=== PATIENT | female | born 1995 | race Caucasian/White ===

== ENCOUNTER → 2018-06-16 | Outpatient (CLI) | payer OTHER ==
[2018-06-16 17:22] LABS: T4, Free (Free Thyroxine) 0.9 ng/dL (0.78-2.19)
== END ==
LOC: LABWHC1 15:53
PROVIDERS: ATTEND Obstetrics & Gynecology
DX: N92.6 Irregular menstruation, unspecified (principal)
CPT/HCPCS: 36415; 84439; 84443

== ENCOUNTER → 2018-06-16 | Outpatient (CLI) | payer OTHER ==
--- NOTE | 2018-06-16 23:03 | US ---
EXAMINATION TYPE: US pelvic complete DATE OF EXAM: 06/16/2018 COMPARISON: NONE CLINICAL HISTORY: 23-year-old female N92.6 irregular menses. Generalized pelvic pain TECHNIQUE: Transabdominal sonographic images of the pelvis were acquired. Date of LMP: today FINDINGS: EXAM MEASUREMENTS: Uterus: 6.8 x 3.0 x 4.2 cm Endometrial Stripe: 0.5 cm Right Ovary: 3.3 x 2.1 x 2.8 cm Left Ovary: 3.3 x 1.6 x 2.8 cm 1. Uterus: Anteverted wnl 2. Endometrium: wnl 3. Right Ovary: wnl with follicular change. 4. Left Ovary: wnl with follicular change. 5. Bilateral Adnexa: wnl 6. Posterior cul-de-sac: no free fluid seen IMPRESSION: Unremarkable transabdominal sonographic examination of the pelvis.
== END | disposition home or self-care (01) ==
LOC: RADUSWWP 15:32
PROVIDERS: ATTEND Obstetrics & Gynecology
DX: N92.6 Irregular menstruation, unspecified (principal)
CPT/HCPCS: 76856

== ENCOUNTER → 2022-03-20 | Outpatient (CLI) | payer OTHER ==
--- NOTE | 2022-03-20 16:04 | US ---
EXAMINATION TYPE: US OB Call Back DATE OF EXAM: 03/20/2022 COMPARISON: NONE CLINICAL HISTORY: Z36 CONFIRM DATES. Callback GESTATIONAL AGE / DATING Dates by Initial Survey Scan: (20 weeks/5 days) EDC: 08/02/22 HEART RATE: 136 bpm RHYTHM: Normal ANATOMY SEEN (second anatomic survey look): Four Chamber Heart: Outflow tracts:? LVOT/RVOT Kidneys (bilateral): IMPRESSION: 1. Supplemental anatomy exam appears normal 2. Cardiac activity documented at 136 bpm during this study.
== END | disposition home or self-care (01) ==
LOC: RADUSWWP 15:06
PROVIDERS: ATTEND Obstetrics & Gynecology
DX: Z53.9 Procedure and treatment not carried out, unspecified reason (principal)

== ENCOUNTER → 2022-06-29 | Outpatient (CLI) | payer OTHER ==
--- NOTE | 2022-06-29 10:20 | US ---
EXAMINATION TYPE: US OB >= 14 wk fetus DATE OF EXAM: 06/29/2022 COMPARISON: US dated 03/09/2022 CLINICAL HISTORY: O36.63X0 LARGE FOR DATES TECHNIQUE: Transabdominal (TA) GESTATIONAL AGE / DATING Physician Established: (35 weeks/1 days) EDC: 08/02/2022 Dates by LMP: (35 weeks/ days) EDC: 08/02/2022 Dates by First Scan: (34 weeks/6 days) EDC: 08/05/2022 Dates by Current Scan: (35 weeks/6 days) EDC: 07/28/2022 SURVEY IUP: Single PLACENTA: Posterior PREVIA: No Previa ALLYN: 13.2 cm Normal CERVICAL LENGTH (transabdominal: norm > 3.0cm): 4.4 cm BIOMETRY PRESENTATION: Vertex BPD: 9.2 cm 37 weeks / 3 days HC: 31.9 cm 36 weeks / 0 days AC: 32.4 cm 36 weeks / 2 days FL: 6.9 cm 35 weeks / 6 days ESTIMATED WEIGHT IN GRAMS: 2901 grams ESTIMATED WEIGHT IN LBS/OZ: 6 lbs. 6 oz. WEIGHT PERCENTAGE BASED ON ESTABLISHED DATES: 79% HC/AC: 0.99 Normal FL/AC: 21.5 Normal HEART RATE: 142 bpm RHYTHM: Normal Growth according to dates. IMPRESSION: Single live intrauterine gestation. biometry measurements minimally increased for expected due date as described above.
== END | disposition home or self-care (01) ==
LOC: RADUSWWP 09:38
PROVIDERS: ATTEND Obstetrics & Gynecology
DX: O36.63X0 Maternal care for excessive fetal growth, third trimester, not applicable or unspecified (principal); Z3A.35 35 weeks gestation of pregnancy
CPT/HCPCS: 76805

== ENCOUNTER 2022-07-15 10:19 | Outpatient (CLI) | payer OTHER ==
[2022-07-15 11:25] VITALS: BP 119/73; PULSE 105; RESP 16; TEMP 97.8
--- NOTE | 2022-07-18 09:39 | P.MSEPDOC ---
Presenting Problems - Arrival Data Date of Arrival on Unit: 07/15/22 Time of Arrival on Unit: 10:19 Mode of Transport: Ambulatory - Complaint OB-Reason for Admission/Chief Complaint: Possible Onset of Labor, Acute Nausea/Vomiting, Headache Comment: + covid Medical History - Information : 2 Para: 1 Term: 0 : 0 Abortions: Spontaneous or Elective: 0 Number of Living Children: 1 - Gestational Age Gestational Age by RENÉ (wks/days): 37 Weeks and 3 Days - History Complications: GBS+ Review of Systems - Review of Systems Constitutional: No problems Breast: No problems ENT: Cough Cardiovascular: No problems Respiratory: No problems Gastrointestinal: No problems Genitourinary: No problems Musculoskeletal: No problems Neurological: No problems Skin: No problems Vital Signs - Temperature Temperature: 97.8 F Temperature Source: Temporal Artery Scan - Pulse Right Sitting Pulse Rate: 105 Pulse Assessment Method: Automatic Cuff - Respirations Respiratory Rate: 16 Oxygen Delivery Method: Room Air O2 Sat by Pulse Oximetry: 97 - Blood Pressure Right Arm Blood Pressure: 119/73 Blood Pressure Mean: 88 Blood Pressure Source: Automatic Cuff Medical Screen Scoring - Cervical Exam Dilation (cm): 2 Effacement (%): 50 Station: -2 Membranes: Intact - Assessment - Baby A Baseline FHR: 145 Heart Rate - NICHD Category: Category I (Normal) NST: Reactive Physician Notification - Physician Notified Physician Notified Date: 07/15/22 Physician Notified Time: 11:08 Physician: Mariana Vasquez Order Received: Yes (d/c home) Maternal Triage Index - Non-Urgent/Priority 4 Non-Urgent Priority 4: Yes Criteria Met for Priority 4: reactive nst, nno contracctions on monitor, palpated or felt by pt, vag exam 2cm/50%/-2, covid + Disposition - Disposition OB Disposition: Discharge to home Discharge Date: 07/15/22 Discharge Time: 11:19 I agree with the RN Medical Screening Exam: Yes Case reviewed; plan agreed upon as documented in EMR&OBIX.: Yes Diagnosis: COVID-19 Additional Diagnoses: False labor
== END 2022-07-15 11:19 | disposition home or self-care (01) ==
LOC: FBPOP 10:19
PROVIDERS: ATTEND Obstetrics & Gynecology
DX: O47.1 False labor at or after 37 completed weeks of gestation (principal); Z3A.37 37 weeks gestation of pregnancy; U07.1 COVID-19
CPT/HCPCS: 59025; 99213

== ENCOUNTER 2022-07-15 20:25 | Outpatient (CLI) | payer OTHER ==
[2022-07-15 21:18] VITALS: BP 118/66; PULSE 104; RESP 18; TEMP 98.1
--- NOTE | 2022-07-16 06:24 | P.MSEPDOC ---
Presenting Problems - Arrival Data Date of Arrival on Unit: 07/15/22 Time of Arrival on Unit: 20:25 Mode of Transport: Ambulatory - Complaint OB-Reason for Admission/Chief Complaint: Rule Out SROM Comment: Pt presents to unit with c/o gush of fluid around 1400 this afternoon while vomiting Medical History - Information : 2 Para: 1 Term: 1 : 0 Abortions: Spontaneous or Elective: 0 Number of Living Children: 1 - Gestational Age Gestational Age by RENÉ (wks/days): 37 Weeks and 3 Days Review of Systems - Review of Systems Constitutional: No problems Breast: No problems ENT: No problems Cardiovascular: No problems Respiratory: No problems Gastrointestinal: No problems Genitourinary: No problems Musculoskeletal: No problems Neurological: No problems Skin: No problems Vital Signs - Temperature Temperature: 98.1 F Temperature Source: Temporal Artery Scan - Pulse Pulse Oximetery Pulse Rate: 104 Pulse Assessment Method: Pulse Oximetry - Respirations Respiratory Rate: 18 Oxygen Delivery Method: Room Air O2 Sat by Pulse Oximetry: 100 - Blood Pressure Right Arm Blood Pressure: 118/66 Blood Pressure Mean: 83 Blood Pressure Source: Automatic Cuff Medical Screen Scoring - Cervical Exam Dilation (cm): 2 Effacement (%): 50 Station: -2 Membranes: Intact - Uterine Contractions Resting: Soft to palpation - Assessment - Baby A Baseline FHR: 150 Heart Rate - NICHD Category: Category I (Normal) NST: Reactive Physician Notification - Physician Notified Physician Notified Date: 07/15/22 Physician Notified Time: 20:55 Physician: Kishan Beach - Notification Comment Comment: RN spoke with Dr. Beach regarding triage pt c/o gush of fluid around 1400 this afternoon. Reported on maternal vital signs, reactive NST, category 1 FHT, contx pattern, cervical exam of 2/50/-2 and negative amnisure. Per Dr. Yong RN to discharge pt home. Maternal Triage Index - Maternal Triage Index Presenting for scheduled procedure w/no complaint: No - Stat/Priority 1 Stat Priority 1: No - Urgent/Priority 2 Urgent Priority 2: No - Prompt/Priority 3 Prompt Priority 3: No - Non-Urgent/Priority 4 Non-Urgent Priority 4: Yes Criteria Met for Priority 4: Pt presents to unit with c/o gush of fluid around 1400 this afternoon while vomiting Disposition - Disposition OB Disposition: Discharge to home, Written follow up instructions reviewed Discharge Date: 07/15/22 Discharge Time: 20:58 I agree with the RN Medical Screening Exam: Yes Case reviewed; plan agreed upon as documented in EMR&OBIX.: Yes Diagnosis: FALSE LABOR AT OR AFTER 37 COMPLETED WEEKS OF GESTATION
== END 2022-07-15 20:58 | disposition home or self-care (01) ==
LOC: FBPOP 20:25
PROVIDERS: ATTEND Obstetrics & Gynecology
DX: O47.1 False labor at or after 37 completed weeks of gestation (principal); Z3A.37 37 weeks gestation of pregnancy; Z88.2 Allergy status to sulfonamides; Z88.8 Allergy status to other drugs, medicaments and biological substances
CPT/HCPCS: 59025; 84112; 99213

== ENCOUNTER 2022-08-03 03:04 | Inpatient (IN) | payer OTHER ==
--- NOTE | 2022-08-02 11:52 | P.HPOB ---
History of Present Illness H&P Date: 08/02/22 Chief Complaint: Induction of labor This is a 27 y.o. female, 2, para 1, with an estimated date of confinement of 08/02/2022, estimated gestational age of 40-1/7 weeks, who presents for induction of labor. She complains of irregular contractions and pressure. was complicated by COVID about 2-3 weeks ago. labs: Hepatitis B surface antigen-neg RPR-NR Rubella-immune Blood type-O neg Antibody screen-neg, Rhogam given at 28 weeks HIV-NR Hemoglobin-12.5 Random glucose-53 1 hr. GTT-128 GBS-positive pap-ASCUS, +HR HPV GC/Chlamydia/Trich-neg OB Hx: . History of 1 vaginal delivery. 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 Works at [employer]. Review of Systems Constitutional: Denies chills, Denies fever Eyes: denies blurred vision, denies pain Ears, nose, mouth and throat: Denies headache, Denies sore throat Cardiovascular: Denies chest pain, Denies shortness of breath Respiratory: Denies cough Gastrointestinal: Reports abdominal pain (irregular contractions), Reports heartburn, Denies diarrhea, Denies nausea, Denies vomiting Genitourinary: Reports pelvic pain, Reports Musculoskeletal: Reports low back pain Integumentary: Denies pruritus, Denies rash Neurological: Denies numbness, Denies weakness Psychiatric: Denies anxiety, Denies depression Past Medical History Past Medical History: Musculoskeletal Disorder (lumbar injury after fall from a horse) History of Any Multi-Drug Resistant Organisms: None Reported Past Surgical History: Ear Surgery Additional Past Surgical History / Comment(s): wisdom teeth Past Anesthesia/Blood Transfusion Reactions: No Reported Reaction Past Psychological History: No Psychological Hx Reported Smoking Status: Never smoker Past Alcohol Use History: None Reported Past Drug Use History: None Reported - Past Family History Mother Family Medical History: No Reported History Medications and Allergies Home Medications Medication Instructions Recorded Confirmed Type Pnv,Calcium 72/Iron/Folic Acid 1 tab PO ONCE 09/18/16 07/15/22 History [ Plus Tablet] Acetaminophen Tab [Tylenol] 2 tab PO DIRECTED 07/15/22 07/15/22 History Allergies Allergy/AdvReac Type Severity Reaction Status Date / Time sulfamethoxazole Allergy Rash/Hives Verified 07/15/22 20:47 [From Bactrim] trimethoprim [From Bactrim] Allergy Rash/Hives Verified 07/15/22 20:47 Exam Osteopathic Statement: *. No significant issues noted on an osteopathic structural exam other than those noted in the History and Physical/Consult. HEENT: within normal limits Heart: regular rate and rhythm Lungs: clear to auscultation bilaterally Abdomen: , non-tender Cervix: 4 cm/80%/0 heart tones: 140's by doppler Extremities: neg. Cliff's Assessment and Plan (1) 40 weeks gestation of Status: Acute Code(s): Z3A.40 - 40 WEEKS GESTATION OF SNOMED C ode(s): 88980168 (2) Group B Streptococcus carrier, +RV culture, currently Status: Acute Code(s): O99.820 - STREPTOCOCCUS B CARRIER STATE COMPLICATING SNOMED Code(s): 9313604405170 Plan: Admission for induction of labor. Antibiotic prophylaxis for +GBS. Expectant management. Epidural anesthesia if desired.
[2022-08-03] MEDS ORDERED: LACTATED RINGERS 1,000 ML IV SCH (03:11)
[2022-08-03] MEDS ORDERED: OXYTOCIN 30 UNITS/500 ML NS 30 UNIT in SALINE 1 500ML.BAG IV SCH ×2 (03:11→07:00)
[2022-08-03] MEDS ORDERED: OXYTOCIN 10 UNIT/ML 1 ML VIAL IM PRN (03:11)
[2022-08-03] MEDS ORDERED: METHYLERGONOVINE 0.2 MG/ML 1 ML AMP IM PRN (03:11)
[2022-08-03] MEDS ORDERED: LIDOCAINE 0.5% (PF) 5 MG/ML (50 ML SDV) SQ PRN (03:11)
[2022-08-03] MEDS ORDERED: CARBOPROST TROMETHAMINE 250 MCG/ML 1 ML AMP IM PRN (03:11)
[2022-08-03] MEDS ORDERED: TERBUTALINE 1 MG/ML VIAL SQ PRN (03:11)
[2022-08-03] MEDS ORDERED: AMPICILLIN 2,000 MG in SODIUM CHLORIDE 0.9% 100 ML IVPB STA (03:11)
[2022-08-03] MEDS ORDERED: LIDOCAINE 1% (10MG/ML) FOR IV START INTRADERMA PRN (03:11)
[2022-08-03] MEDS ORDERED: BUTORPHANOL 1 MG/ML 1 ML VIAL IV PRN (03:55)
[2022-08-03 04:00] LABS: Basophils % (A) 0 %; Eosinophils # (A) 0.1 k/uL (0-0.7); Eosinophils % (A) 1 %; HCT 36.5 % (34.0-46.0); HGB 12.2 gm/dL (11.4-16.0); Hypochromasia Slight; Lymphocytes # (A) 2.1 k/uL (1.0-4.8); Lymphocytes % (A) 24 %; MCH 32.1 pg (25.0-35.0); MCHC 33.4 g/dL (31.0-37.0); Mean Platelet Volume 14.7; Monocytes # (A) 0.4 k/uL (0-1.0); Monocytes % (A) 4 %; Neutrophils % (A) 68 %; Platelet Count 173 k/uL (150-450); RDW 13.9 % (11.5-15.5); WBC 8.7 k/uL (3.8-10.6)
--- NOTE | 2022-08-03 04:37 | P.PN ---
Progress Note - Text Progress Note Date: 08/03/22 Please see dictated H&P per Dr. Vasquez on this patient's admission. This is a pleasant 27-year-old 2 para 1 female 40 and one sevenths weeks gestation initially admitted for induction of labor however presents to labor and delivery with complaints of regular painful contractions since 2 this morning. She is 7 cm dilated and active labor. Patient received a dose of Stadol for pain control she initially wanted an epidural however the anesthesiologist is not in-house and she is now 8 cm dilated and therefore this is been discontinued. heart tones are category 1 and artificial rupture membranes shows clear fluid we now anticipate vaginal delivery.
[2022-08-03 05:14] LABS: Large Platelets Present
--- NOTE | 2022-08-03 06:54 | P.PROBDLV ---
Vaginal Delivery Note - . Vaginal Delivery Note: Normal spontaneous vaginal delivery viable male infant Apgars 9 and 9 delivery time is Please see dictated H&P for intimate details of this patient's admission. Brief summary this is a pleasant 27-year-old 2 para 1 female 40 and one sevenths weeks gestation admitted to labor and delivery with complaints of regular painful contractions. On admission patient is 7 cm dilated has artificial rupture membranes for clear fluid. Patient's given one dose of Stado l labor progresses normally. Patient gets to complete pushes the head to the perineum posterior perineum is supported controlled delivery of the infant's head over the intact perineum. Infant's head is straight occiput anterior presentation. Mouth and nares are bulb suctioned. There is no evidence of nuchal cord. Patient then pushes uncontrollably and delivers the anterior and posterior shoulder and rest this infant's body. This is a vigorous viable male infant Apgars are 9 and 9. After delivery of the infant the umbilical cord is doubly clamped and cut due to history of jaundice with her first baby. The infant is laid on the mother's abdomen. The placenta is then spontaneously delivered intact. Inspection of the perineum shows a superficial right periurethral laceration. No repairs required. Estimated blood loss is 200 mL. There are no complications. and mother stable delivery room.
[2022-08-03] MEDS ORDERED: diphenhydrAMINE 50 MG/ML 1 ML VIAL IVP PRN (06:55)
[2022-08-03] MEDS ORDERED: bisacodyL 10 MG SUPP RECTAL PRN (06:55)
[2022-08-03] MEDS ORDERED: BENZOCAINE/MENTHOL SPRAY 1 GM/SPRAY AEROSOL TOPICAL PRN (06:55)
[2022-08-03] MEDS ORDERED: Rhogam IMMUNE GLOBULIN 1,500 UNIT/1 ML IM ONE (06:55)
[2022-08-03] MEDS ORDERED: LANOLIN CREAM 5 GM TUBE TOPICAL PRN (06:55)
[2022-08-03] MEDS ORDERED: diphenhydrAMINE 25 MG CAP PO PRN (06:55)
[2022-08-03] MEDS ORDERED: ZOLPIDEM 5 MG TAB PO PRN (06:55)
[2022-08-03] MEDS ORDERED: HYDROCORTISONE 2.5% RECTAL CREAM 30 GM TUBE RECTAL PRN (06:55)
[2022-08-03] MEDS ORDERED: SIMETHICONE 80 MG CHEWABLE PO PRN (06:55)
[2022-08-03] MEDS ORDERED: ACETAMINOPHEN TAB 325 MG TAB PO PRN (06:55)
[2022-08-03] MEDS ORDERED: AMPICILLIN 1,000 MG in SODIUM CHLORIDE 0.9% 50 ML IVPB SCH (07:00)
[2022-08-03] MEDS: IBUPROFEN 600 MG TAB PO PRN ×2 (07:22→20:17)
[2022-08-03] MEDS: SENNOSIDES-DOCUSATE SODIUM 1 EACH TAB PO SCH ×2 (08:51→20:19)
[2022-08-04 07:20] LABS: Basophils % (A) 0 %; Eosinophils # (A) 0.1 k/uL (0-0.7); Eosinophils % (A) 1 %; HCT 32.2 % (34.0-46.0); HGB 10.5 gm/dL (11.4-16.0); Hypochromasia Slight; Lymphocytes # (A) 1.8 k/uL (1.0-4.8); Lymphocytes % (A) 23 %; MCH 31.6 pg (25.0-35.0); MCHC 32.6 g/dL (31.0-37.0); MCV 97.1 fL (80.0-100.0); Mean Platelet Volume 14.5; Monocytes # (A) 0.4 k/uL (0-1.0); Monocytes % (A) 4 %; Neutrophils # (A) 5.4 k/uL (1.3-7.7); Neutrophils % (A) 69 %; Platelet Count 151 k/uL (150-450); RBC 3.32 m/uL (3.80-5.40); RDW 14.1 % (11.5-15.5); WBC 7.9 k/uL (3.8-10.6)
[2022-08-04] MEDS: SENNOSIDES-DOCUSATE SODIUM 1 EACH TAB PO SCH ×2 (08:48→19:59)
--- NOTE | 2022-08-04 08:52 | P.PNOBGVD ---
Subjective - Subjective Principal diagnosis: Status post vaginal delivery day #1 Interval history: Patient is doing well. Lochia is decreasing. Her pain is fairly well controlled. She is working on breast-feeding. Patient reports: Reports appetite normal, Reports voiding normally, Reports pain well controlled, Reports ambulating normally [place]: doing well, nursing well Objective - Latest Vital Signs Latest vital signs: Vital Signs Temp Pulse Resp BP Pulse Ox 08/04/22 08:17 98 F 55 L 16 147/89 99 08/04/22 04:00 97.9 F 84 14 103/66 98 08/04/22 00:00 97.3 F L 54 L 14 119/80 98 08/03/22 20:00 98.1 F 63 14 112/73 98 08/03/22 16:00 98.7 F 56 L 16 148/86 08/03/22 12:00 98.0 F 60 16 112/61 08/03/22 09:00 54 L 16 126/72 Intake and Output 08/03/22 08/04/22 08/04/22 22:59 06:59 14:59 Intake Total 480 Balance 480 Intake: Oral 480 Other: # Voids 1 2 # Bowel Movements 0 - Exam Extremities: Present: normal. Absent: tenderness, edema Abdomen: Present: normal appearance, soft. Absent: distention, tenderness Uterus: Present: normal, firm. Absent: tenderness - Labs Labs: Abnormal Lab Results - Last 24 Hours (Table) 08/04/22 Range/Units 06:08 RBC 3.32 L (3.80-5.40) m/uL Hgb 10.5 L (11.4-16.0) gm/dL Hct 32.2 L (34.0-46.0) % Assessment and Plan Assessment: Status post vaginal delivery day #1 (1) 40 weeks gestation of Current Visit: No Status: Acute Code(s): Z3A.40 - 40 WEEKS GESTATION OF SNOMED Code(s): 13054600 (2) Group B Streptococcus carrier, +RV culture, currently Current Visit: No Status: Acute Code(s): O99.820 - STREPTOCOCCUS B CARRIER STATE COMPLICATING SNOMED Code(s): 5481500181925 Plan: Continue care today. Anticipate discharge home tomorrow.
--- NOTE | 2022-08-04 08:52 | P.PNOBGVD ---
Subjective - Subjective Principal diagnosis: Status post vaginal delivery day #1 Interval history: Patient is doing well. Lochia is decreasing. Her pain is fairly well controlled. She is working on breast-feeding. Patient reports: Reports appetite normal, Reports voiding normally, Reports pain well controlled, Reports ambulating normally [place]: doing well, nursing well Objective - Latest Vital Signs Latest vital signs: Vital Signs Temp Pulse Resp BP Pulse Ox 08/04/22 08:17 98 F 55 L 16 147/89 99 08/04/22 04:00 97.9 F 84 14 103/66 98 08/04/22 00:00 97.3 F L 54 L 14 119/80 98 08/03/22 20:00 98.1 F 63 14 112/73 98 08/03/22 16:00 98.7 F 56 L 16 148/86 08/03/22 12:00 98.0 F 60 16 112/61 08/03/22 09:00 54 L 16 126/72 Intake and Output 08/03/22 08/04/22 08/04/22 22:59 06:59 14:59 Intake Total 480 Balance 480 Intake: Oral 480 Other: # Voids 1 2 # Bowel Movements 0 - Exam Extremities: Present: normal. Absent: tenderness, edema Abdomen: Present: normal appearance, soft. Absent: distention, tenderness Uterus: Present: normal, firm. Absent: tenderness - Labs Labs: Abnormal Lab Results - Last 24 Hours (Table) 08/04/22 Range/Units 06:08 RBC 3.32 L (3.80-5.40) m/uL Hgb 10.5 L (11.4-16.0) gm/dL Hct 32.2 L (34.0-46.0) % Assessment and Plan Assessment: Status post vaginal delivery day #1 (1) 40 weeks gestation of Current Visit: No Status: Acute Code(s): Z3A.40 - 40 WEEKS GESTATION OF SNOMED Code(s): 55770674 (2) Group B Streptococcus carrier, +RV culture, currently Current Visit: No Status: Acute Code(s): O99.820 - STREPTOCOCCUS B CARRIER STATE COMPLICATING SNOMED Code(s): 9149116895108 Plan: Continue care today. Anticipate discharge home tomorrow.
[2022-08-04 16:55] VITALS: RESP 16
[2022-08-05] MEDS: IBUPROFEN 600 MG TAB PO PRN (08:10)
[2022-08-05 08:18] VITALS: BP 108/71; PULSE 99; TEMP 97.9
[2022-08-05] MEDS: SENNOSIDES-DOCUSATE SODIUM 1 EACH TAB PO SCH (08:18)
--- NOTE | 2022-08-05 08:44 | P.DS ---
Providers Date of admission: 08/03/22 03:04 Expected date of discharge: 08/05/22 Attending physician: Mariana Vasquez Primary care physician: Stated None - Discharge Diagnosis(es) (1) 40 weeks gestation of Current Visit: No Status: Acute (2) Group B Streptococcus carrier, +RV culture, currently Current Visit: No Status: Acute Hospital Course: This is a 27-year-old female 2 para 1 at 40 and one sevenths weeks who presents with active labor prior to her induction time. She delivered vaginally a viable male on 08/03/2022 with scores of 9 at 1 minute and 9 at 5 minutes and infant weight of 7 lbs. 2 oz. Her course has been uncomplicated. Lochia is decreasing. Her pain is well-controlled. Baby is breast-feeding. Vital signs are stable. Abdomen is soft with fundus firm and nontender. Extremities show negative Homans. Impression is status post vaginal delivery day #1. Plan is to discharge home today. Routine instructions are given. She will be given a prescription for ibuprofen. She is advised to follow up in the office in 6 weeks for check. She is advised to call the office if she has any further questions or concerns prior to her appointment. Procedures: Spontaneous vaginal delivery of a viable male infant on 08/03/2022 Patient Condition at Discharge: Stable Plan - Discharge Summary New Discharge Prescriptions: New Ibuprofen [Motrin] 600 mg PO Q6HR PRN #60 tab PRN Reason: Mild Pain (Scale 1 To 3) Continue Pnv,Calcium 72/Iron/Folic Acid [ Plus Tablet] 1 tab PO ONCE No Action Acetaminophen Tab [Tylenol] 2 tab PO DIRECTED Discharge Medication List Pnv,Calcium 72/Iron/Folic Acid [ Plus Tablet] 1 tab PO ONCE 09/18/16 [History] Acetaminophen Tab [Tylenol] 2 tab PO DIRECTED 07/15/22 [History] Ibuprofen [Motrin] 600 mg PO Q6HR PRN #60 tab 08/05/22 [Rx] Follow up Appointment(s)/Referral(s): Mariana Vasquez DO [Doctor of Osteopathic Medicine] - 09/15/22 3:45 pm Activity/Diet/Wound Care/Special Instructions: Instructions 1. Do not begin any exercise program for 3 weeks. 2. Do not resume sexual relations for 3 weeks or longer if uncomfortable. 3. You may take tub baths or showers at any time. 4. You may use tampons if desired after 3 weeks. 5. Keep the area of episiotomy (stitches) clean and dry. 6. If you are not nursing, wear a good fitting, supportive bra during the day and limit fluid intake for at least 1 week to prevent breast engorgement. 7. Call the office, [phone], within the next week to make appointment for your 6 week checkup if it has not already been made. 8. Report any of the following occurrences to the doctor promptly: a. Heavy, excessive bleeding b. Chills, fever c. Burning or frequency of urination d. Pain or redness and breasts if nursing e. Increasing pain or swelling in episiotomy (stitches). In addition to the above instructions, the following additional should be followed: 1. No heavy lifting or straining (exercising) until after 6 week checkup. 2. Keep abdominal incision clean and dry: You may wear a dressing if more comfortable. 3. Make office appointment for 10 days after going home or as instructed by her doctor. Discharge Disposition: HOME SELF-CARE
== END 2022-08-05 12:19 | disposition home or self-care (01) | DRG 807 ==
LOC: 4FBP 03:04
PROVIDERS: ADMIT Obstetrics & Gynecology; ATTEND Obstetrics & Gynecology
PROC: 10E0XZZ Delivery of Products of Conception, External Approach (ICD-10-PCS; principal; 2022-08-03)
DX: O48.0 Post-term pregnancy (principal); Z37.0 Single live birth; O71.82 Other specified trauma to perineum and vulva; Z3A.40 40 weeks gestation of pregnancy
CPT/HCPCS: 85025; 85461; 86850; 86900; 86901

== ENCOUNTER → 2023-10-25 | Outpatient (CLI) | payer OTHER ==
--- NOTE | 2023-10-25 10:25 | US ---
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 Transabdominal sonographic images of the pelvis were acquired. Date of LMP: End sep EXAM MEASUREMENTS: Uterus: 6.9 x 3.8 x 4.5 cm Endometrial Stripe: 1.0 cm Right Ovary: 1.9 x 1.5 x 1.8 cm Left Ovary: 2.4 x 1.4 x 2.5 cm 1. Uterus: Anteverted wnl 2. Endometrium: wnl 3. Right Ovary: wnl 4. Left Ovary: wnl 5. Bilateral Adnexa: wnl 6. Posterior cul-de-sac: wnl Urinary bladder is sonolucent. The posterior wall is normal IMPRESSION: 1. Unremarkable pelvic ultrasound
[2023-10-25 15:10] LABS: HCT 40.3 % (37.2-46.3); HGB 12.9 g/dL (12.0-15.0); MCH 30.7 pg (27.0-32.0); Mean Platelet Volume 12.4 FL (9.5-12.2); NRBC Per 100 WBC 0 X 10*3/uL (0.00-0.01); Platelet Count 240 X 10*3/uL (140-440); RDW 12.2 % (11.5-14.5); WBC 5.91 X 10*3/uL (4.50-10.00)
[2023-10-25 15:38] LABS: ALT 54 U/L (8-44); AST 27 U/L (13-35); Albumin 4.5 g/dL (3.8-4.9); Albumin/Globulin Ratio 1.73 Ratio (1.60-3.17); Alkaline Phosphatase 54 U/L (41-126); BUN/Creat Ratio 16.12 Ratio (12.00-20.00); Blood Urea Nitrogen 12.9 mg/dL (9.0-27.0); Calcium 9.4 mg/dL (8.7-10.3); Carbon Dioxide 22.7 mmol/L (21.6-31.8); Chloride 104 mmol/L (96-109); Chol/HDL Ratio 1.99 Ratio; Globulin 2.6 g/dL (1.6-3.3); Glucose 87 mg/dL (70-110); LDL Cholesterol,Calculated 62.4 mg/dL (0.0-131.0); Sodium 137 mmol/L (135-145); T4, Free (Free Thyroxine) 1.06 ng/dL (0.80-1.80); Total Bilirubin 0.5 mg/dL (0.3-1.2); Total Protein 7.1 g/dL (6.2-8.2); VLDL Calculation 16.78 mg/dL (5.00-40.00)
== END | disposition home or self-care (01) ==
LOC: RADUSWWP 08:50
PROVIDERS: ATTEND Obstetrics & Gynecology
DX: Z13.220 Encounter for screening for lipoid disorders (principal); Z13.1 Encounter for screening for diabetes mellitus; N92.1 Excessive and frequent menstruation with irregular cycle; Z13.29 Encounter for screening for other suspected endocrine disorder
CPT/HCPCS: 76856; 80053; 80061; 84439; 84443; 85027

== ENCOUNTER → 2024-09-25 | Outpatient (CLI) | payer OTHER ==
--- NOTE | 2024-09-25 15:36 | US ---
EXAMINATION TYPE: US transvaginal DATE OF EXAM: 09/25/2024 COMPARISON: Ultrasound 10/25/2023 CLINICAL INDICATION: Female, 29 years old with history of N92.1 EXCESSIVE AND FREQUENT MENSTRUATION; pre-ablation US, heavy, irregular cycles TECHNIQUE: TV. Transvaginal sonographic images FINDINGS: Date of LMP: 09-23-2024 EXAM MEASUREMENTS: Uterus: 7.3 x 4.9 x 2.9 cm Endometrial Stripe: 0.4 cm Right Ovary: 2.1 x 2.2 x 1.9 cm Left Ovary: 3.4 x 2.4 x 2.1 cm 1. Uterus: Anteverted wnl 2. Endometrium: wnl 3. Right Ovary: follicles under 1cm 4. Left Ovary: follicles under 1cm 5. Bilateral Adnexa: wnl 6. Posterior cul-de-sac: wnl IMPRESSION: 1. No evidence for acute process. 2. Endometrium within normal limits for thickness. [facility], , 09/25/2024 3:33 PM
== END | disposition home or self-care (01) ==
LOC: RADUSWWP 14:52
PROVIDERS: ATTEND Obstetrics & Gynecology
DX: N92.1 Excessive and frequent menstruation with irregular cycle (principal)
CPT/HCPCS: 76830